=== PATIENT | female | born 1980 | race Hispanic/Latino ===

== ENCOUNTER 2017-11-07 17:04 | Emergency (ER) | payer BC ==
[~2017-11-07] VITALS: Ht 152.4 cm; Wt 68.0 kg
[2017-11-07 20:19] VITALS: BP 120/80
== END 2017-11-07 20:15 | disposition home or self-care (01) ==
LOC: FSED 17:04
DX: R10.30 Lower abdominal pain, unspecified (principal); N30.90 Cystitis, unspecified without hematuria
CPT/HCPCS: 81003; 81025; 99282

== ENCOUNTER 2024-03-13 12:01 | Emergency (ER) | payer BC ==
[~2024-03-13] VITALS: Ht 152.4 cm; Wt 64.9 kg
[~2024-03-13 12:01] MED LIST: FIORICET 50-301 EACH PO; ONDANSETRON ODT4 MG PO
[2024-03-13 12:08] VITALS: PULSE 78; RESP 18; TEMP 98.6
[2024-03-13] MEDS ORDERED: AZITHROMYCIN250 MG PO (12:53)
[2024-03-13] MEDS ORDERED: VENTOLIN HFA18 GM INH (12:53)
[2024-03-13] MEDS ORDERED: BENZONATATE200 MG PO (12:53)
[2024-03-13] MEDS: ALBUTEROL/IPRATROPIUM 3 ML NEB NEB ONE (13:24)
[2024-03-13 14:14] VITALS: BP 129/80; PULSE 68; RESP 17; TEMP 98.3; O2SAT 100
== END 2024-03-13 13:30 | disposition home or self-care (01) ==
LOC: FSED 12:10
DX: R06.02 Shortness of breath (principal); R07.89 Other chest pain; J06.9 Acute upper respiratory infection, unspecified; R05.9 Cough, unspecified; D64.9 Anemia, unspecified; F41.9 Anxiety disorder, unspecified
CPT/HCPCS: 71046; 93005; 99283